=== PATIENT | female | born 1990 | race Caucasian/White ===

== ENCOUNTER → 2017-01-13 | Outpatient (CLI) | payer OTHER ==
[~2017-01-13] MED LIST: AMPH10TA2 PO; OPTIRAY 320 IV PRN
--- NOTE | 2017-01-13 17:28 | DIAGNOSTIC IMAGING REPORT ---
CT OF THE NECK WITH CONTRAST CT DOSE: 580.71 mGy.cm CLINICAL HISTORY: Right cervical lymphadenopathy. Recent ultrasound demonstrating prominent right submandibular lymph nodes. TECHNIQUE: Axial images of the neck were obtained following intravenous injection of 92 cc Optiray 320 IV. COMPARISON STUDY: None. FINDINGS: Visualized portions of the intracranial contents are unremarkable. The parotid and submandibular glands are normal as is the thyroid gland. Airway is patent. Mastoid air cells are clear within visualized portions. There is mild mucosal thickening of the right sphenoid sinus. Major vasculature of the neck is patent. A mildly enlarged right level 2 cervical lymph node shown image 147 of 421 measures 3.5 x 1.8 x 1.3 cm. This node is elongated. A borderline enlarged left level 2 lymph node shown on image 138 measures 2.8 x 1.4 x 0.9 cm. A prominent right level 1 lymph node shown on image 158 measures 1.4 x 0.9 cm. Lung apices are clear. No suspicious skeletal lesions are present. IMPRESSION: Mild right cervical lymphadenopathy with a mildly enlarged right level 2 lymph node and a borderline enlarged right level 1 lymph node. While the level 2 lymph node is enlarged, this lymph node is elongated and not particularly suspicious however is indeterminate and ultrasound-guided fine needle aspiration could be performed. Electronically signed by: Sudhir Beltre M.D. 01/13/2017 5:27 PM Dictated Date/Time: 01/13/2017 4:54 PM
== END | disposition home or self-care (01) ==
LOC: C.CTS 16:25
DX: R59.0 Localized enlarged lymph nodes (principal)

== ENCOUNTER → 2017-02-02 | Outpatient (CLI) | payer OTHER ==
[~2017-02-02] MED LIST changes: -OPTIRAY 320 IV PRN
--- NOTE | 2017-02-02 11:53 | Discharge Instructions ---
Discharge Instructions Procedure Procedure Date: Feb 02, 2017. Reason for visit: Lymphadenopathy Of R Cervical Region. Discharge Discharge Date: Feb 02, 2017. Discharge Diagnosis: s/p right cervical lymph node FNA Instructions Activity Recommendations: No limitations Return to School/Work: no limitations Recommended Home Diet: No Limitations Provider Instructions: ACTIVITY RECOMMENDATIONS: * Rest today. * Resume regular activity in one day. MEDICATIONS: * May take Tylenol or Ibuprofen as needed for pain. DIET: * Resume previous diet. SPECIAL CARE INSTRUCTIONS: Call your doctor if: * Temperature above 101 degrees F. * Pain not relieved by pain medicine ordered. * Increased drainage or redness from incision. * Notify your doctor with any questions or concerns. Call your doctor or go to the nearest Emergency Department if you experience: * Increased chest pain or shortness of breath. FOLLOW UP VISIT: Follow-up with Referring Physician as scheduled. Javid Corbin Recommendations: Call your doctor if: * Temperature above 101 degrees * Pain not relieved by pain medicine ordered * There is increased drainage or redness from any incision * You have any unanswered questions or concerns. Your Doctors Instructions noted above were prepared by provider Sudhir Beltre. Patient Signature Section: Patient Instructions Signature Page Germaine Alarcon Patient (or Guardian) Signature/Date: I have read and understand the instructions given to me by my caregivers. Caregiver/RN/Doctor Signature/Date: The above-named patient and/or guardian has received patient instructions on this date. + Original Patient Signature Page (only) stays with chart. Please make copy for patient.
--- NOTE | 2017-02-02 12:47 | DIAGNOSTIC IMAGING REPORT ---
ULTRASOUND GUIDED FINE NEEDLE ASPIRATION OF RIGHT LEVEL 2 CERVICAL LYMPH NODE CLINICAL HISTORY: Right cervical lymphadenopathy. COMPARISON STUDY: Neck CT January 13, 2017. PROCEDURE: Sonography of the right neck again demonstrated a mildly enlarged right level 2 cervical lymph node that measured 2.7 x 1 x 2.1 cm and corresponds to the lymph node shown on neck CT of January 13, 2017. This was targeted for fine needle aspiration. Skin was prepped and draped in sterile fashion and local anesthesia was achieved with 1% lidocaine. Under direct ultrasound guidance, 2 25-gauge fine needle aspirations were performed within this lymph node. Benign-appearing lymphocytes were noted on preliminary pathology. An additional 22-gauge fine needle aspiration of this lymph node was performed. Samples were deemed preliminarily adequate by pathology. IMPRESSION: Ultrasound guided fine needle aspiration of mildly enlarged right level 2 cervical lymph node. Electronically signed by: Sudhir Beltre M.D. 02/02/2017 12:46 PM Dictated Date/Time: 02/02/2017 12:44 PM
== END | disposition home or self-care (01) ==
LOC: C.ULTR 11:11
DX: R59.0 Localized enlarged lymph nodes (principal)

== ENCOUNTER → 2017-02-16 | Outpatient (CLI) | payer OTHER ==
[~2017-02-16] MED LIST changes: +OPTIRAY 320 IV PRN
--- NOTE | 2017-02-16 17:21 | DIAGNOSTIC IMAGING REPORT ---
SOFT TISSUE NECK WITH CLINICAL HISTORY: 27 years-old Female presenting with LYMPHONOPATHY OF RT CERVICAL REGION. TECHNIQUE: Multidetector CT of the neck was performed after the administration of intravenous contrast. IV contrast: 94 mL of Optiray 320. A dose lowering technique was used consistent with the principles of ALARA (as low as reasonably achievable). COMPARISON: 01/13/2017. CT DOSE (mGy.cm): The estimated cumulative dose is 209.32 mGy.cm. FINDINGS: [employer] topogram: Unremarkable. Stable to slight interval decreased prominence of jugulodigastric nodes, measuring 1.8 cm in the long axis on the right (previously 1.8 cm) and 1.2 cm in long axis on the left (previously 1.4 cm). Few prominent submandibular lymph nodes more prominent on the right and few prominent intraparotid lymph nodes on the left. One of the 70 below nodes now measures 1.4 cm in long axis, previously 1.4 cm. Limited intracranial evaluation within normal limits. Cervical vessels patent. Gas within the superficial veins of the base the neck likely related to injection. Paranasal sinuses and mastoid air cells clear. Osseous structures demonstrate straightening of normal cervical lordosis, likely positional. Lung apices clear. Airways patent. IMPRESSION: Stable to slight interval decrease in mildly prominent right cervical lymph nodes. Given the lack of progression, these are likely reactive. Follow-up could be obtained only if clinically warranted with consideration for ultrasound as a subsequent modality. Electronically signed by: Bijan Montez M.D. 02/16/2017 5:19 PM Dictated Date/Time: 02/16/2017 5:10 PM
== END | disposition home or self-care (01) ==
LOC: C.CTS 16:10
PROVIDERS: ATTEND Physician Assistant
DX: R59.0 Localized enlarged lymph nodes (principal)

== ENCOUNTER 2017-02-27 14:12 | Emergency (ER) | payer OTHER ==
[~2017-02-27] VITALS: Ht 170.2 cm; Wt 65.6 kg
[2017-02-27 14:14] VITALS: TEMP 36.7; Ht 170.2 cm; Wt 65.6 kg
[2017-02-27] MEDS ORDERED: ALUMINUM/MAGNESIUM SUSP 30 ML UDC PO STA (14:27)
[2017-02-27] MEDS ORDERED: KETOROLAC TROMETHAMINE 30 MG/ML VIAL IV STA (14:27)
--- NOTE | 2017-02-27 14:51 | EMERGENCY ROOM VISIT NOTE ---
History Report prepared by Devin: Shaw Briggs Under the Supervision of: Dr. Diana Perez D.O. First contact with patient: 14:17 Chief Complaint: CHEST PAIN Stated Complaint: CHEST PAINS, LEFT ARM PAIN Nursing Triage Summary: Pt c/o mid upper chest pain since 0200, took ibuprofen and it was better but now it's worse again. "I also have radiating pain down my left arm" Pt c/o SOB, dizziness. Denies cardiac history. Going to grad school. History of Present Illness The patient is a 27 year old female who presents to the Emergency Room with complaints of constant mid upper chest pain that began 12 hours ago. She rates her pain an 8/10 in severity. At this time, the patient's pain work her up from sleep. She took some Ibuprofen which helped a little bit, but a couple hours later the pain worsened again. Her pain is exacerbated with movement and breathing. When she lies down still, her pain is slightly better. She notes that her pain is radiating down her whole left arm, making the arm mildly numb. This has never happened to her before, and states that she was completely asymptomatic when she went to bed the night before. She denies any fevers, chills, shortness of breath, abdominal pain, back pain, nausea, vomiting, rash, diarrhea, leg swelling, or abnormal urinary symptoms. She notes some dizziness intermittently with the pain. She has an IUD with hormones in place. She denies any history of GERD or recent travel. Source of History: patient Onset: 12 hours ago Position: chest Symptom Intensity: 8/10 Quality: ache Timing: constant Modifying Factors (Worsening): breathing, movement Modifying Factors (Relieving): rest (lying still) Associated Symptoms: No fevers, No chills, No cough, No SOB, No nausea, No vomiting, No abdominal pain, No back pain, No melena, No hematochezia, No diarrhea, No urinary symptoms Note: She is having some dizziness and left arm pain. Review of Systems See HPI for pertinent positives & negatives. A total of 10 systems reviewed and were otherwise negative. Past Medical & Surgical Medical Problems: (1) No Known Active Medical Problems Family History Heart disease Social History Smoking Status: Current Every Day Smoker Drug Use: none Marital Status: in relationship Housing Status: lives alone Occupation Status: employed Current/Historical Medications Scheduled Amphetamine-Dextroamphetamine 10MG (Adderall 10MG), 10 MG PO BID Allergies Coded Allergies: No Known Allergies (Unverified , 02/27/17) Physical Exam Vital Signs Date Time Temp Pulse Resp B/P (MAP) Pulse Ox O2 Delivery O2 Flow Rate FiO2 02/27/17 17:47 72 16 108/64 100 Room Air 02/27/17 16:06 101 16 100/65 99 Room Air 02/27/17 14:14 36.7 96 18 114/80 98 Room Air Physical Exam GENERAL: alert, well appearing, well nourished, no distress, non-toxic EYE EXAM: normal conjunctiva, PERRL and EOM's grossly intact OROPHARYNX: no exudate, no erythema, lips, buccal mucosa, and tongue normal and mucous membranes are moist NECK: supple, no nuchal rigidity, no adenopathy, non-tender LUNGS: Clear to auscultation. Normal chest wall mechanics, no w/r/r HEART: no murmurs, S1 normal and S2 normal, no jvd ABDOMEN: abdomen soft, non-tender, normo-active bowel sounds, no masses, no rebound or guarding. BACK: Back is symmetrical on inspection and there is no deformity, no midline tenderness, no CVA tenderness. SKIN: no rashes and no bruising UPPER EXTREMITIES: upper extremities are grossly normal. LOWER EXTREMITIES: No pitting edema. NEURO EXAM: Normal sensorium, cranial nerves II-XII grossly intact, normal speech, no gross weakness of arms, no gross weakness of legs. Medical Decision & Procedures ER Provider Diagnostic Interpretation: Radiology results have been interpreted by the radiologist and reviewed by me. CHEST ONE VIEW PORTABLE HISTORY: Atypical chest pain COMPARISON: None. FINDINGS: The lungs are clear. Cardiac silhouette is normal in size. No pleural effusions. No pneumothorax. IMPRESSION: No acute process. Electronically signed by: Giovanni Brambila M.D. 02/27/2017 2:51 PM Dictated Date/Time: 02/27/2017 2:50 PM Laboratory Results 02/27/17 14:50 Red Blood Count 4.67, Mean Corpuscular Volume 90.1, Mean Corpuscular Hemoglobin 29.3, Mean Corpuscular Hemoglobin Concent 32.5, Mean Platelet Volume 11.1, Neutrophils (%) (Auto) 65.0, Lymphocytes (%) (Auto) 24.4, Monocytes (%) (Auto) 8.6, Eosinophils (%) (Auto) 1.5, Basophils (%) (Auto) 0.4, Neutrophils # (Auto) 5.36, Lymphocytes # (Auto) 2.01, Monocytes # (Auto) 0.71, Eosinophils # (Auto) 0.12, Basophils # (Auto) 0.03 02/27/17 14:50 Test 02/27/17 14:50 White Blood Count 8.24 K/uL (4.8-10.8) Red Blood Count 4.67 M/uL (4.2-5.4) Hemoglobin 13.7 g/dL (12.0-16.0) Hematocrit 42.1 % (37-47) Mean Corpuscular Volume 90.1 fL (80-100) Mean Corpuscular Hemoglobin 29.3 pg (25-34) Mean Corpuscular Hemoglobin Concent 32.5 g/dl (32-36) Platelet Count 222 K/uL (130-400) Mean Platelet Volume 11.1 fL (7.4-10.4) Neutrophils (%) (Auto) 65.0 % Lymphocytes (%) (Auto) 24.4 % Monocytes (%) (Auto) 8.6 % Eosinophils (%) (Auto) 1.5 % Basophils (%) (Auto) 0.4 % Neutrophils # (Auto) 5.36 K/uL (1.4-6.5) Lymphocytes # (Auto) 2.01 K/uL (1.2-3.4) Monocytes # (Auto) 0.71 K/uL (0.11-0.59) Eosinophils # (Auto) 0.12 K/uL (0-0.5) Basophils # (Auto) 0.03 K/uL (0-0.2) RDW Standard Deviation 41.4 fL (36.4-46.3) RDW Coefficient of Variation 12.7 % (11.5-14.5) Immature Granulocyte % (Auto) 0.1 % Immature Granulocyte # (Auto) 0.01 K/uL (0.00-0.02) D-Dimer < 190 ug/L FEU (0-500) Anion Gap 6.0 mmol/L (3-11) Est Creatinine Clear Calc Drug Dose 92.9 ml/min Estimated GFR () 103.0 Estimated GFR (Non- 88.9 BUN/Creatinine Ratio 14.4 (10-20) Calcium Level 9.1 mg/dl (8.5-10.1) Troponin I < 0.015 ng/ml (0-0.045) Human Chorionic Gonadotropin, Qual NEG (NEG) Laboratory results per my review. Medications Administered Medications (Trade) Dose Ordered Sig/Penelope Route Start Time Stop Time Status Last Admin Dose Admin Al Hydroxide/Mg Hydroxide (Maalox Susp) 30 ml NOW STAT PO 02/27/17 14:27 02/27/17 14:29 DC 02/27/17 15:20 30 ML Ketorolac Tromethamine (Toradol Inj) 30 mg NOW STAT IV 02/27/17 14:27 02/27/17 14:29 DC 02/27/17 15:20 30 MG Famotidine (Pepcid Tab) 20 mg NOW ONCE PO 02/27/17 15:45 02/27/17 15:46 DC 02/27/17 16:04 20 MG Acetaminophen (Tylenol Tab) 1,000 mg NOW STAT PO 02/27/17 15:43 02/27/17 15:44 DC 02/27/17 16:04 1,000 MG Lorazepam (Ativan Inj) 0.5 mg NOW STAT IV 02/27/17 16:52 02/27/17 16:55 DC 02/27/17 17:02 0.5 MG ECG Indication: chest pain Rate (beats per minute): 89 Rhythm: sinus rhythm Findings: no acute ischemic change, other (Normal axis, normal intervals, baseline artifact noted) ED Course 1417: The patient was evaluated in room B11B. A complete history and physical exam was performed. 1427: Ordered Toradol Inj 30 mg IV, Maalox Susp 30 ml PO 1540: I reassessed the patient at this time. I updated her on her results. The first round of medication did not help with her pain, but she appears much more calm than earlier. 1543: Ordered Tylenol Tab 1000 mg PO 1545: Ordered Pepcid Tab 20 mg PO 1646: After reassessment, she is still having pain. 1652: Ordered Ativan Inj 0.5 mg IV 1755: Upon reevaluation, the patient is feeling better. I discussed the findings and the treatment plan with the patient. She verbalizes agreement and understanding. She was discharged home. Medical Decision Differential diagnoses includes but is not limited to acute coronary syndrome, myocardial infarction, pericarditis, pulmonary embolus, aortic dissection, pneumonia, pneumothorax, musculoskeletal, shingles, esophageal. Heart score 0 Patient well-appearing here despite complaints, anxious and tearful regarding pain. Patient low risk for any significant cardiac or pulmonary etiology. Doubt vascular etiology, no evidence of occult infection. No history to suggest trauma. Patient improved following medication, discussed follow-up with family doctor, symptoms watch return for, she verbalized understanding was agreeable with plan. Medication Reconcilliation Current Medication List: was personally reviewed by me Blood Pressure Screening Patient's blood pressure: Normal blood pressure Blood pressure disposition: Did not require urgent referral Impression Primary Impression: Chest pain Scribe Attestation The scribe's documentation has been prepared under my direction and personally reviewed by me in its entirety. I confirm that the note above accurately reflects all work, treatment, procedures, and medical decision making performed by me. Departure Information Dispostion Home / Self-Care Referrals [facility] (PCP) Forms HOME CARE DOCUMENTATION FORM, IMPORTANT VISIT INFORMATION Patient Instructions My [facility] Additional Instructions Please avoid any strenuous activity or heavy lifting until you're feeling better. You may eat and drink normally. If you develop any recurrent or worsening chest pain, develop trouble breathing, dizziness or lightheadedness, nausea or vomiting, fevers or chills, you have any other new or concerning symptoms, please return the emergency room. Problem Qualifiers Primary Impression: Chest pain Chest pain type: unspecified Qualified Codes: R07.9 - Chest pain, unspecified
[2017-02-27 15:05] LABS: BASO % 0.4 %; BASO ABS # 0.03 K/uL (0-0.2); COMPLETE YES; EOS % 1.5 %; HEMATOCRIT 42.1 % (37-47); IG% 0.1 %; LYMPH % 24.4 %; LYMPH ABS # 2.01 K/uL (1.2-3.4); MEAN CELL VOLUME 90.1 fL (80-100); MEAN CORPUSCULAR HEMOGLOBIN 29.3 pg (25-34); MEAN CORPUSCULAR HGB CONC 32.5 g/dl (32-36); MEAN PLATELET VOLUME 11.1 fL (7.4-10.4); MONO % 8.6 %; PLATELET COUNT 222 K/uL (130-400); RED BLOOD COUNT 4.67 M/uL (4.2-5.4); WHITE BLOOD COUNT 8.24 K/uL (4.8-10.8)
[2017-02-27 15:25] LABS: BLOOD UREA NITROGEN 13 mg/dl (7-18); BUN/CREATININE RATIO 14.4 (10-20); CALCIUM 9.1 mg/dl (8.5-10.1); CARBON DIOXIDE 29 mmol/L (21-32); CHLORIDE 107 mmol/L (98-107); GLUCOSE 83 mg/dl (70-99); SODIUM 142 mmol/L (136-145)
[2017-02-27 15:35] LABS: PREG INTERNAL NEGATIVE QC NEG CLEAR BACKGROUND; PREG INTERNAL POSITIVE QC POS CONTROL LINE
[2017-02-27] MEDS ORDERED: ACETAMINOPHEN 500 MG TAB PO STA (15:43)
[2017-02-27] MEDS ORDERED: FAMOTIDINE 20 MG TAB PO ONE (15:45)
[2017-02-27] MEDS ORDERED: AMPH10TA2 PO (16:02)
[2017-02-27] MEDS ORDERED: LORAZEPAM 2 MG/ML 1 ML VIAL IV STA (16:52)
[2017-02-27 17:47] VITALS: BP 108/64; PULSE 72; O2SAT 100
== END 2017-02-27 17:51 | disposition home or self-care (01) ==
LOC: C.EDB 14:13
DX: R07.9 Chest pain, unspecified (principal); Z82.49 Family history of ischemic heart disease and other diseases of the circulatory system; F17.200 Nicotine dependence, unspecified, uncomplicated